=== PATIENT | female | born 1990 | race Caucasian/White ===

== ENCOUNTER 2017-04-17 11:48 | Emergency (ER) | payer OTHER ==
[~2017-04-17] VITALS: Ht 165.1 cm; Wt 69.4 kg
[2017-04-17] MEDS ORDERED: FLEXERIL10 MG PO (12:57)
[2017-04-17] MEDS ORDERED: NAPROXEN500 MG PO (12:57)
[2017-04-17 13:08] VITALS: BP 135/93
== END 2017-04-17 13:08 | disposition home or self-care (01) ==
LOC: EME 11:48
DX: S39.012A Strain of muscle, fascia and tendon of lower back, initial encounter (principal); R51 Headache; M54.2 Cervicalgia; V49.40XA Driver injured in collision with unspecified motor vehicles in traffic accident, initial encounter; Y92.410 Unspecified street and highway as the place of occurrence of the external cause; F17.200 Nicotine dependence, unspecified, uncomplicated
CPT/HCPCS: 99281; 99284